=== PATIENT | female | born 1965 | race African-American/Black ===

== ENCOUNTER 2016-07-24 09:22 | Emergency (ER) | payer OTHER ==
--- NOTE | 2016-07-24 09:54 | ERRECORD ---
[facility] EMERGENCY RECORD HPI COUGH (09:33 WMEI) CHIEF COMPLAINT: Patient presents for evaluation of cough, productive of yellow sputum, No Hemoptysis present. HISTORIAN: History provided by patient. LOCATION: Symptoms are generalized. QUALITY: Denies wheezing, worse at night has tessalon but not helping. TIME COURSE: Gradual onset of symptoms, 6, days priror to arrival. ASSOCIATED WITH: No associated chest pain, No associated chills, No associated fever. EXACERBATED BY: Patient's condition exacerbated by lying flat. RELIEVED BY: Patient's condition relieved by nothing. ROS (09:34 WMEI) CONSTITUTIONAL: Historian denies fever, denies malaise. EYES: Historian denies eye pain, denies eye discharge. ENT: Historian denies otalgia, reports rhinorrhea, reports sinus pain, denies sore throat. CARDIOVASCULAR: Historian denies chest pain, no radiation. RESPIRATORY: Historian reports cough, denies shortness of breath, reports sputum. yellow, Historian denies wheezing. GI: Historian denies abdominal pain, denies nausea. MUSCULOSKELETAL: Historian denies injury, denies myalgias, denies neck pain. SKIN: Historian denies skin changes, denies skin lesions. NEUROLOGIC: Historian denies focal weakness, denies headache, denies mental status changes. ALLERGIC/IMMUNOLOGIC: Historian denies eczema, denies food allergies. PSYCHIATRIC: Historian denies alcohol abuse, denies anxiety, denies depression. PAST MEDICAL HISTORY MEDICAL HISTORY: Flu vaccine up to date, Tetanus not up to date, Pneumococcal vaccine not up to date, Notes: as lsited, Notes: BACK PAIN, Past medical history includes history of hypertension. Notes: chrinic back pain, Past medical history includes history of hypertension, which has been treated. REVIEWED 01/31/16. verified 07/24/16. (09:32 CTUR) FEMALE SURGICAL HISTORY: as listed, RECENT NECK AND BACK SX 10-13. neck surgery. REVIEWED 01/31/16. verified 07/24/16. (09:32 CTUR) PSYCHIATRIC HISTORY: No previous psychiatric history, REVIEWED 01/31/16. verified 07/24/16. (09:32 CTUR) SOCIAL HISTORY: Patient denies alcohol use, Patient denies drug use, Patient currently uses tobacco, smokes cigarettes, daily, Patient smokes 1/2 packs per day, Patient denies alcohol use, Patient denies drug use, Patient currently uses tobacco, smokes cigarettes, daily, Patient smokes 1 pack per day, &a-1R&a+25V*p+0X*h5570W*c202B*c15G*c2P*p-0X&a-25V&a+1R Name: Polina Chadwick : 1965 F51 MedRec: [id number] AcctNum: [id number] Prepared: Mine Jul 24, 2016 13:28 by Interface Page 1 of 3 pMD [facility] EMERGENCY RECORD REVIEWED 01/31/16. verified 07/24/16. (09:32 CTUR) Patient currently uses tobacco, smokes cigarettes, daily, Patient smokes 1/2 packs per day. (09:36 WMEI) KNOWN ALLERGIES No Known Drug Allergies CURRENT MEDICATIONS No recorded medications VITAL SIGNS (09:25 CTUR) VITAL SIGNS: BP: 118/96, Pulse: 99, Resp: 18, Temp: 98.1 (Oral), Pain: 6, O2 sat: 99 on Room Air, Time: 07/24/2016 09:25. PHYSICAL EXAM (09:35 WMEI) CONSTITUTIONAL: Vital Signs Reviewed. HEAD: Head exam included findings of head atraumatic, normocephalic. EYES: Conjunctiva normal, Sclera normal. ENT: Ear exam normal, Nose exam included findings of, turbinate mucosa discharge, Pharynx exam normal. NECK: Neck exam included findings of normal range of motion, Trachea midline. RESPIRATORY CHEST: Breath sounds clear, Chest exam included findings of chest movement symmetrical. CARDIOVASCULAR: Cardiovascular exam included findings of heart rate regular rate and rhythm, Heart sounds normal. ABDOMEN FEMALE: Abdominal exam included findings of abdomen nontender, Bowel sounds normal. UPPER EXTREMITY: Upper extremity exam included findings of inspection normal, Range of motion normal, Motor strength normal. LOWER EXTREMITY: Left lower leg exam normal, Right lower leg exam normal. NEURO: Joleen coma scale 15, Neuro exam findings include patient oriented to person, place and time, Speech normal, Gait normal. SKIN: Skin exam included findings of skin warm, dry, and normal in color. LYMPHATIC: Lymphatic exam normal. PSYCHIATRIC: Psychiatric exam included findings of patient oriented to person place and time, Normal affect, Judgment normal, Insight normal. PROBLEM LIST No recorded problems DIAGNOSIS (09:39 WMEI) FINAL: PRIMARY: Acute bronchitis. PRESCRIPTION Zithromax oral: CAPSULE : 250 mg : ORAL : Quantity: 1 &a-1R&a+25V*p+0X*a9420G*c202B*c15G*c2P*p-0X&a-25V&a+1R Name: Polina Chadwick : 1965 11 MedRec: [id number] AcctNum: [id number] Prepared: Mine Jul 24, 2016 13:28 by Interface Page 2 of 3 pMD [facility] EM[facility]GENC[facility] RECORD Unit: tab(s) Route: ORAL Schedule: once a day (in the morning) Dispense: 6 Unit: tab(s) May substitute. Refills: No Refills . (09:37 WMEI) NOTES: No refills. (09:37 WMEI) codeine-guaifenesin: LIQUID (ML) : 100 mg-10 mg/5 mL : ORAL : Quantity: 5-10 Unit: mL Route: ORAL Schedule: every 6 hours PRN Dispense: 120 Unit: mL May substitute. Refills: No Refills . (09:39 WMEI) NOTES: No refills. (09:39 WMEI) DISPOSITION PATIENT: Disposition Type: Discharge, Disposition: *Discharge Home. (09:39 WMEI) Patient left the department. (09:49 LGIB) Bullock: CTUR=BELEM Crawford, Pat LGIB=BELEM Meza, Rose WMEI=DO Kaylin, Brien &a-1R&a+25V*p+0X*u1865I*c202B*c15G*c2P*p-0X&a-25V&a+1R Name: Polina Chadwick : 1965 F51 MedRec: [id number] AcctNum: [id number] Prepared: Mine Jul 24, 2016 13:28 by Interface Page 3 of 3 pMD MTDD
--- NOTE | 2016-07-24 09:59 | PICIS ---
[facility] EMERGENCY RECORD TRIAGE (MonJul 24, 2016 09:27 CTUR) TRIAGE NOTES: Patient reports having a cough for the past week, prescriped tessalon pearls and reports no relief, reports feeling generally ill with yellow mucus production. (MonJul 24, 2016 09:27 CTUR) PATIENT: NAME: Polina Chadwick, AGE: 51, GENDER: female, : Mon1965, TIME OF GREET: MonJul 24, 2016 09:22, PREFERRED LANGUAGE: Syriac, ETHNICITY: Not or , ECODE BILLING MAP: [facility], SSN: [id number], Zip Code: [address], KG WEIGHT: 110.22, PHONE: , , , PERSON ID: [id number], PAYMENT: X Medicaid, PCP: INA Rivers Kimberly. (MonJul 24, 2016 09:27 CTUR) ADMISSION: URGENCY: 4 Non Urgent, ADMISSION SOURCE: Home, TRANSPORT: CAR, BED: TRIAGE. (MonJul 24, 2016 09:27 CTUR) IMMUNIZATIONS: Flu vaccine up to date, Tetanus immunization up to date, Pneumococcal vaccine not up to date. (09:32 CTUR) SIRS SCORING: Heart Rate 55-109 (0), Temp range 96.8-101.1 (0), respiratory rate 12-24 (0). (09:32 CTUR) TRIAGE SCREENING: Patient denies suicidal ideation, Patient denies presence of domestic violence. (09:32 CTUR) PROVIDERS: TRIAGE NURSE: Pat Crawford RN. (MonJul 24, 2016 09:27 CTUR) VITAL SIGNS: BP 118/96, Pulse 99, Resp 18, Temp 98.1, (Oral), Pain 6, O2 Sat 99, on Room Air, Time 07/24/2016 09:25. (09:25 CTUR) PREVIOUS VISIT ALLERGIES: No Known Drug Allergies. (MonJul 24, 2016 09:27 CTUR) No Known Drug Allergies. (09:32 CTUR) KNOWN ALLERGIES No Known Drug Allergies CURRENT MEDICATIONS No recorded medications VITAL SIGNS (09:25 CTUR) VITAL SIGNS: BP: 118/96, Pulse: 99, Resp: 18, Temp: 98.1 (Oral), Pain: 6, O2 sat: 99 on Room Air, Time: 07/24/2016 09:25. NURSING ASSESSMENT: RESPIRATORY /CHEST (09:27 LGIB) CONSTITUTIONAL: Complex assessment performed, Patient arrives ambulatory, Gait steady, History obtained from patient, Patient appears comfortable, Patient cooperative, Patient alert, Oriented to person, place and time, Skin warm, Skin dry, Skin normal in color, Mucous membranes pink, Mucous membranes moist, Patient is well-groomed, Patient complains of COUGH, X 1 WEEK, PRODUCTIVE. SAW PCP AND WAS GIVEN TESSALON PEARLS. DENIES FEVER. RESPIRATORY/CHEST: Breath sounds clear, Respiratory assessment findings include respiratory effort easy, Respirations regular, Conversing normally, Neck and chest exam findings include trachea midline, Chest expansion equal, Chest movement symmetrical, no signs &a-1R&a+25V*p+0X*t1475H*c202B*c15G*c2P*p-0X&a-25V&a+1R Name: Polina Chadwick : 1965 F51 MedRec: [id number] AcctNum: [id number] Prepared: Mine Jul 24, 2016 13:35 by Interface Page 1 of 4 pMD [facility] EMERGENCY RECORD of distress, no retractions noted, no cyanosis, Associated with cough, productive of, yellow sputum, no associated fever. ENT: Ear assessment findings include ear normal to inspection, Nasal assessment findings include nose normal to inspection, Mouth and throat assessment findings include mouth inspection normal. SAFETY: Side rails up, Cart/Stretcher in lowest position, Family at bedside, Call light within reach, Hospital ID band on. NURSING PROCEDURE: DISCHARGE NOTE (09:45 LGIB) DISCHARGE: Patient discharged to home, ambulating without assistance, driving self, unaccompanied, Summary of Care printed/ provided, Patient requested and was provided an electronic copy of Discharge Instructions, Discharge instructions given to patient, Simple or moderate discharge teaching performed, Prescriptions given and instructions on side effects given, Above person(s) verbalized understanding of discharge instructions and follow-up care, Patient treated and evaluated by physician. BELONGINGS: Belongings and valuables with patient at time of discharge include:, Belongings remain with patient, Valuables remain with patient. HPI COUGH (09:33 WMEI) CHIEF COMPLAINT: Patient presents for evaluation of cough, productive of yellow sputum, No Hemoptysis present. HISTORIAN: History provided by patient. LOCATION: Symptoms are generalized. QUALITY: Denies wheezing, worse at night has tessalon but not helping. TIME COURSE: Gradual onset of symptoms, 6, days priror to arrival. ASSOCIATED WITH: No associated chest pain, No associated chills, No associated fever. EXACERBATED BY: Patient's condition exacerbated by lying flat. RELIEVED BY: Patient's condition relieved by nothing. ROS (09:34 WMEI) CONSTITUTIONAL: Historian denies fever, denies malaise. EYES: Historian denies eye pain, denies eye discharge. ENT: Historian denies otalgia, reports rhinorrhea, reports sinus pain, denies sore throat. CARDIOVASCULAR: Historian denies chest pain, no radiation. RESPIRATORY: Historian reports cough, denies shortness of breath, reports sputum. yellow, Historian denies wheezing. GI: Historian denies abdominal pain, denies nausea. MUSCULOSKELETAL: Historian denies injury, denies myalgias, denies neck pain. SKIN: Historian denies skin changes, denies skin lesions. NEUROLOGIC: Historian denies focal weakness, denies headache, denies mental status changes. &a-1R&a+25V*p+0X*r0442N*c202B*c15G*c2P*p-0X&a-25V&a+1R Name: Polina Chadwick : 1965 F51 MedRec: [id number] AcctNum: [id number] Prepared: Mine Jul 24, 2016 13:35 by Interface Page 2 of 4 pMD [facility] EMERGENCY RECORD ALLERGIC/IMMUNOLOGIC: Historian denies eczema, denies food allergies. PSYCHIATRIC: Historian denies alcohol abuse, denies anxiety, denies depression. PAST MEDICAL HISTORY MEDICAL HISTORY: Flu vaccine up to date, Tetanus not up to date, Pneumococcal vaccine not up to date, Notes: as lsited, Notes: BACK PAIN, Past medical history includes history of hypertension. Notes: chrinic back pain, Past medical history includes history of hypertension, which has been treated. REVIEWED 01/31/16. verified 07/24/16. (09:32 CTUR) FEMALE SURGICAL HISTORY: as listed, RECENT NECK AND BACK SX 10-13. neck surgery. REVIEWED 01/31/16. verified 07/24/16. (09:32 CTUR) PSYCHIATRIC HISTORY: No previous psychiatric history, REVIEWED 01/31/16. verified 07/24/16. (09:32 CTUR) SOCIAL HISTORY: Patient denies alcohol use, Patient denies drug use, Patient currently uses tobacco, smokes cigarettes, daily, Patient smokes 1/2 packs per day, Patient denies alcohol use, Patient denies drug use, Patient currently uses tobacco, smokes cigarettes, daily, Patient smokes 1 pack per day, REVIEWED 01/31/16. verified 07/24/16. (09:32 CTUR) Patient currently uses tobacco, smokes cigarettes, daily, Patient smokes 1/2 packs per day. (09:36 WMEI) PHYSICAL EXAM (09:35 WMEI) CONSTITUTIONAL: Vital Signs Reviewed. HEAD: Head exam included findings of head atraumatic, normocephalic. EYES: Conjunctiva normal, Sclera normal. ENT: Ear exam normal, Nose exam included findings of, turbinate mucosa discharge, Pharynx exam normal. NECK: Neck exam included findings of normal range of motion, Trachea midline. RESPIRATORY CHEST: Breath sounds clear, Chest exam included findings of chest movement symmetrical. CARDIOVASCULAR: Cardiovascular exam included findings of heart rate regular rate and rhythm, Heart sounds normal. ABDOMEN FEMALE: Abdominal exam included findings of abdomen nontender, Bowel sounds normal. UPPER EXTREMITY: Upper extremity exam included findings of inspection normal, Range of motion normal, Motor strength normal. LOWER EXTREMITY: Left lower leg exam normal, Right lower leg exam normal. NEURO: Joleen coma scale 15, Neuro exam findings include patient oriented to person, place and time, Speech normal, Gait normal. SKIN: Skin exam included findings of skin warm, dry, and normal in color. LYMPHATIC: Lymphatic exam normal. &a-1R&a+25V*p+0X*u7610S*c202B*c15G*c2P*p-0X&a-25V&a+1R Name: Polina Chadwick : 1965 F51 MedRec: [id number] AcctNum: [id number] Prepared: Mine Jul 24, 2016 13:35 by Interface Page 3 of 4 pMD [facility] EMERGENCY RECORD PSYCHIATRIC: Psychiatric exam included findings of patient oriented to person place and time, Normal affect, Judgment normal, Insight normal. EVENTS TRANSFER: Triage to Emergency Triage. (Mine Jul 24, 2016 09:27 CTUR) Emergency Triage to Emergency Room -01. (09:27 LGIB) Removed from Emergency Emergency Room -01. (09:49 LGIB) PROBLEM LIST No recorded problems DIAGNOSIS (09:39 WMEI) FINAL: PRIMARY: Acute bronchitis. DISPOSITION PATIENT: Disposition Type: Discharge, Disposition: *Discharge Home. (09:39 WMEI) Patient left the department. (09:49 LGIB) INSTRUCTION (09:39 WMEI) DISCHARGE: BRONCHITIS, ABX [place] (ADULT). [facility] [place] [address], . SPECIAL: Follow-up with your primary physician as needed. PRESCRIPTION Zithromax oral: CAPSULE : 250 mg : ORAL : Quantity: 1 Unit: tab(s) Route: ORAL Schedule: once a day (in the morning) Dispense: 6 Unit: tab(s) May substitute. Refills: No Refills . (09:37 WMEI) NOTES: No refills. (09:37 WMEI) codeine-guaifenesin: LIQUID (ML) : 100 mg-10 mg/5 mL : ORAL : Quantity: 5-10 Unit: mL Route: ORAL Schedule: every 6 hours PRN Dispense: 120 Unit: mL May substitute. Refills: No Refills . (09:39 WMEI) NOTES: No refills. (09:39 WMEI) IMAGING (09:47 LGIB) *DISCHARGE INSTRUCTIONS RECEIPT: Image captured from scanner. *SUPPLY CHARGE SHEET: Image captured from scanner. ADMIN (13:24 WMEI) DIGITAL SIGNATURE: DO Ewing William. Bullock: CTUR=BELEM Crawford, Pat LGIB=BELEM Meza, Rose WMEI=DO Ewing William &a-1R&a+25V*p+0X*z8469X*c202B*c15G*c2P*p-0X&a-25V&a+1R Name: Polina Chadwick : 1965 F51 MedRec: [id number] AcctNum: [id number] Prepared: Mine Jul 24, 2016 13:35 by Interface Page 4 of 4 pMD MTDD
== END 2016-07-24 09:45 | disposition home or self-care (01) ==
LOC: BURERS 09:22
DX: J20.9 Acute bronchitis, unspecified (principal); I10 Essential (primary) hypertension; F17.210 Nicotine dependence, cigarettes, uncomplicated
CPT/HCPCS: 99283

== ENCOUNTER 2016-08-05 09:48 | Outpatient (CLI) | payer OTHER ==
--- NOTE | 2016-08-05 15:50 | RAD ---
CHEST TWO VIEWS 08/05/16 Comparison is made with a 01/31/16 study. While there is no major lobar infiltrate or effusion in this patient, there is a question of some ve ry slight prominence of the margins in the left lower lobe. I cannot exclude a very early infiltrate here. It might be best to treat the patient accordingly. The right lung is clear. The heart and med iastinum were unremarkable. The bony structures showed no acute change. IMPRESSION: Equivocal left basilar streaking. Code T POS: HILARY
== END 2016-08-05 09:49 | disposition home or self-care (01) ==
LOC: BURRAD 09:48
PROVIDERS: ATTEND Physician Assistant
DX: J41.0 Simple chronic bronchitis (principal)
CPT/HCPCS: 71020

== ENCOUNTER 2016-09-08 11:13 | Outpatient (CLI) | payer OTHER | END 2016-09-08 11:14 | disposition home or self-care (01) | LOC: HPCALD 11:13 | PROVIDERS: ATTEND Physician Assistant | DX: M25.50 Pain in unspecified joint (principal) | CPT/HCPCS: 36415; 86038; 86200; 86430 ==

== ENCOUNTER 2016-10-02 08:29 | Emergency (ER) | payer OTHER ==
[2016-10-02 09:12] LABS: Blood, Urine Negative (Negative); Glucose, Urine (Dipstick) Negative (Negative); Leukocyte Negative (Negative); Nitrite Negative (Negative); Protein, Urine (Dipstick) Trace mg/dL (Neg-Trace); Urobilinogen 0.2 mg/dL (0.2-1.0)
[2016-10-02 09:14] LABS: Bilirubin Negative (Negative); Clarity Hazy (Clear)
[2016-10-02] MEDS ORDERED: Ketorolac Tromethamine 30 MG/ML VIAL ONE (09:32)
[2016-10-02] MEDS ORDERED: predniSONE 20 MG TAB ONE (09:32)
== END 2016-10-02 09:50 | disposition home or self-care (01) ==
LOC: BURERS 08:29
DX: M54.5 Low back pain (principal); G89.29 Other chronic pain; I10 Essential (primary) hypertension; Z79.891 Long term (current) use of opiate analgesic; Z79.2 Long term (current) use of antibiotics; Z79.899 Other long term (current) drug therapy
CPT/HCPCS: 81003; 96372; J1885; J7506

== ENCOUNTER 2016-11-18 10:01 | Outpatient (CLI) | payer OTHER ==
[2016-11-18 11:00] LABS: ALT (SGPT) 27 U/L (8-55); AST (SGOT) 30 U/L (5-34); Albumin 3.8 g/dL (3.5-5.0); Alkaline Phosphatase 69 U/L (40-150); Anion Gap 14 mmol/L (10-20); BUN (Urea Nitrogen) 11 mg/dL (7.0-18.7); Bilirubin, Total 0.2 mg/dL (0.2-1.2); Calc. Creatinine Clearance 0 mL/min (70-130); Calcium 8.8 mg/dL (7.8-10.44); Carbon Dioxide 20 mmol/L (22-29); Chloride 110 mmol/L (98-107); Estimated GFR-MDRD Greater than 90; Globulin 3.7 g/dL (2.4-3.5); Glucose 94 mg/dL (70-105); Potassium 3.7 mmol/L (3.5-5.1); Protein, Total 7.5 g/dL (6.0-8.3); Sodium 140 mmol/L (136-145)
[2016-11-18 11:08] LABS: Hemoglobin 13.5 g/dL (12.0-16.0); Mean Corpuscular HGB CONC 32.3 g/dL (32.0-36.0); Mean Corpuscular Hemoglobin 28.5 pg (27.0-31.0); Mean Corpuscular Volume 88.4 fl (81.0-99.0); Mean Platelet Volume 5.8 fL (7.4-10.4); Platelet Count 268 thou/uL (130-400); RBC Distribution Width 17.6 % (11.5-14.5); Red Blood Cell (RBC) Count 4.72 mill/uL (4.20-5.40); White Blood Cell (WBC) Count 5.7 thou/uL (4.8-10.8)
== END 2016-11-18 10:02 | disposition home or self-care (01) ==
LOC: BURULT 10:01
PROVIDERS: ATTEND Internal Medicine Gastroenterology
DX: B18.2 Chronic viral hepatitis C (principal); R76.8 Other specified abnormal immunological findings in serum
CPT/HCPCS: 36415; 76700; 80053; 82105; 85027; 86707; 87350; 87517; 87522; 87902

== ENCOUNTER 2017-08-08 08:42 | Outpatient (CLI) | payer OTHER ==
--- NOTE | 2017-08-08 21:00 | RAD ---
LEFT SHOULDER THREE VIEWS: 08/08/17 Comparison is made with a 08/14/15 study. Previously, a tiny calcification was noted near the greater tubercle suggestive of calcific tendonitis. Today, it is much larger, further confirming that feeling . There are no fractures. The glenohumeral joint appears normal. There is some mild degenerative julio ges in the AC joint. IMPRESSION: Calcific tendonitis. POS: HOME
== END 2017-08-08 08:43 | disposition home or self-care (01) ==
LOC: BURRAD 08:42
PROVIDERS: ATTEND Physician Assistant
DX: M25.511 Pain in right shoulder (principal); M75.32 Calcific tendinitis of left shoulder

== ENCOUNTER 2017-09-03 10:15 | Emergency (ER) | payer OTHER ==
[2017-09-03] MEDS ORDERED: Ketorolac Tromethamine 30 MG/ML VIAL ONE (10:40)
== END 2017-09-03 11:00 | disposition home or self-care (01) ==
LOC: BURERS 10:15
DX: M19.012 Primary osteoarthritis, left shoulder (principal); G89.4 Chronic pain syndrome; I10 Essential (primary) hypertension; F32.9 Major depressive disorder, single episode, unspecified; F17.210 Nicotine dependence, cigarettes, uncomplicated; Z79.899 Other long term (current) drug therapy
CPT/HCPCS: 96372; J1885

== ENCOUNTER 2019-02-22 11:52 | Emergency (ER) | payer OTHER | END 2019-02-22 12:10 | disposition home or self-care (01) | LOC: BURERS 11:52 | DX: H65.91 Unspecified nonsuppurative otitis media, right ear (principal); I10 Essential (primary) hypertension; F32.9 Major depressive disorder, single episode, unspecified; F41.9 Anxiety disorder, unspecified; F17.210 Nicotine dependence, cigarettes, uncomplicated; Z79.899 Other long term (current) drug therapy | CPT/HCPCS: 99282 ==